=== PATIENT | female | born 1970 | race Two or more races ===

== ENCOUNTER → 2017-09-18 | Emergency (ER) | payer OTHER ==
[~2017-09-18] VITALS: Ht 160 cm; Wt 81.6 kg
[~2017-09-18] MED LIST: AMBIEN10 MG PO; DOLOGESIC 500-1 EACH PO; PERCOCET 5/3251 TAB PO; PREVACID30 MG PO; PROTONIX40 MG PO; RECTICARE30 GM TP; TENORMIN50 MG PO; TIROSINT13 MCG; ZOLOFT50 MG PO
== END | disposition home or self-care (01) ==
LOC: ER 01:16
DX: H57.8 Other specified disorders of eye and adnexa (principal); R51 Headache

== ENCOUNTER 2019-07-13 09:59 | Emergency (ER) | payer OTHER ==
[~2019-07-13] VITALS: Ht 160 cm; Wt 74.8 kg
== END 2019-07-13 11:11 | disposition home or self-care (01) ==
LOC: ER 09:59
DX: H00.035 Abscess of left lower eyelid (principal)

== ENCOUNTER 2020-02-11 09:24 | Emergency (ER) | payer OTHER ==
[~2020-02-11] VITALS: Ht 160 cm; Wt 74.8 kg
[2020-02-11] MEDS ORDERED: ZYRTEC10 M3 (09:28)
[2020-02-11] MEDS ORDERED: SINGULAIR10 MG (09:28)
[2020-02-11] MEDS ORDERED: WAL-ZYR10 M1 (09:30)
[2020-02-11] MEDS ORDERED: MAXITROL EYE DRO5 ML OP (11:31)
[2020-02-11] MEDS ORDERED: KETO10TA2 PO (11:31)
[2020-02-11] MEDS ORDERED: NORFLEX100MG PO (11:31)
== END 2020-02-11 11:39 | disposition home or self-care (01) ==
LOC: ER 09:24
DX: M25.512 Pain in left shoulder (principal); H00.11 Chalazion right upper eyelid